=== PATIENT | female | born 1955 | race Caucasian/White ===

== ENCOUNTER → 2024-06-20 10:19 | Outpatient (REF) | payer MEDICARE, OTHER, SELFPAY | LOC: HWWDC 10:19 | PROVIDERS: ATTENDING PHYSICIAN Physician Assistant Medical | DX: Z12.31 Encounter for screening mammogram for malignant neoplasm of breast (principal) | CPT/HCPCS: 77063; 77067 ==

== ENCOUNTER 2024-08-19 14:43 | Emergency (ER) | payer MEDICARE, OTHER, SELFPAY ==
[2024-08-19 14:56] VITALS: BP 166/96
[2024-08-19 15:32] LABS: % Basophils 0.7 % (0-2); % Eosinophils 2.2 % (0-6); % Immature Granulocytes 0.1 % (0-0.5); % Lymphocytes 18.8 % (20.5-51.1); % Monocytes 6.2 % (1.7-9.3); Absolute Basophils 0.1 10^3/uL (0-0.2); Absolute Eosinophils 0.2 10^3/uL (0-0.7); Absolute Lymphocytes 1.4 10^3/uL (1.2-3.4); Absolute Monocytes 0.5 10^3/uL (0.1-0.6); Absolute Neutrophils 5.2 10^3/uL (1.4-6.5); Hemoglobin 14.6 g/dL (12.0-16.0); Mean Corp Hgb Conc. 34.8 g/dL (33.0-37.0); Mean Corpuscular Hgb 31.3 pg (27.0-31.0); Mean Corpuscular Volume 90.1 fL (81.0-99.0); Mean Platelet Volume 9.4 fL (7.4-10.4); Nucleated Red Blood Cells % 0 %; Platelet Count 191 10^3/uL (130-400); Red Blood Cell Count 4.66 10^6/uL (4.20-5.40); Red Cell Dist. Width 12.7 % (11.5-14.5); White Blood Cell Count 7.3 10^3/uL (4.8-10.8)
[2024-08-19 15:43] LABS: ALT (SGPT) 17 U/L (0-35); AST (SGOT) 20 U/L (14-36); Albumin 4.1 g/dl (3.5-5.0); Alkaline Phosphatase 98 U/L (38-126); Blood Urea Nitrogen 20 mg/dl (7-17); Calcium 9.5 mg/dl (8.4-10.2); Carbon Dioxide 30 mmol/L (22-30); Chloride 103 mmol/L (98-107); Glucose 113 mg/dl (70-99); Lipase 142 U/L (23-300); Potassium 4.2 mmol/L (3.5-5.1); Sodium 139 mmol/L (135-145); Total Bilirubin 0.6 mg/dl (0.2-1.3); Total Protein 6.4 g/dl (6.3-8.2); eGFR > 60.00
--- NOTE | 2024-08-19 19:02 | ED.GENMED ---
History of Present Illness
General
Chief Complaint: Abdominal Pain
Source: patient
Exam Limitations: none
Time Seen by Provider: 08/19/24 18:44
History of Present Illness
History of Present Illness:
This is a 69 year old female that comes in with c/o abd cramping. States that this started on Monday and the pain gets to bad that she can't stand up straight. State that it comes and goes. States that in the morning when she gets up she may have
some discomfort but feels OK and then after she has been sitting for a while and goes to get up the pain is worse. States that she has had diarrhea but she has issues with diarrhea normal. Denies any fever, chills, chest pain, SOB, nausea, vomiting,
headache, dizziness, urinary burning.
Past History
Past History
ED Past Medical History: HTN, Hypercholesterolemia and Other (Cellulitis, )
ED Past Surgical History: Cholecystectomy, Gynecological (Tubal) and Other (Cataracts)
Social History
Tobacco: Non-smoker
Alcohol: Occasional
Drug: None
Personal:
Living: with family
Family History
Family History: Other (Noncontributory)
Review of Systems
Review of Systems
All Other Systems: ROS reviewed and negative except as documented in HPI and ROS
Constitutional: Reports no symptoms; Denies fever or chills
EENT: Reports no symptoms
Respiratory: Reports no symptoms; Denies cough or trouble breathing
Cardiac: Reports no symptoms; Denies chest pain
ABD/GI: Reports abdominal pain and diarrhea; Denies nausea or vomiting
: Reports no symptoms; Denies dysuria, frequency or urgency
Musculoskeletal: Reports no symptoms
Skin: Reports no symptoms
Neurological: Reports no symptoms; Denies dizzy or headache
Psychiatric: Reports no symptoms
Phy Exam
General Physical Exam
General Presentation: well appearing and no apparent distress
General age: appears stated age
General Skin: warm and dry
General Habitus: elderly
General Mental: alert
General Hydration: dry mucous membranes
ENT Exam
ENT Exam: TM's normal, pharynx normal and neck supple
Eye Exam
Eye Exam: EOMI
Cardiovascular Exam
Cardiovascular Exam: regular rate/rhythm, no murmur and normal peripheral pulses
Pulmonary Exam
Pulmonary Exam: lungs clear, no respiratory distress, no rales, chest non tender, no crackles, no rhonchi, no wheezing and no cough
Gastrointestinal Exam
Gastrointestinal Exam: normal bowel sounds, soft, no organomegaly, no pulsatile mass, non distended and tender (Mid abd tenderness and right sided tenderness with palpation)
Musculoskeletal Exam
Musculoskeletal Exam: full ROM and no edema
Skin Exam
Skin Exam: normal color, warm/dry, no rash and no petechia
Psychiatric Exam
Psychiatric Exam: normal mood/affect
Course
Orders/Labs/Results
Orders:
Orders
08/19/24 15:09
Complete Blood Count/With Diff Urgent
Comprehensive Metabolic Panel Urgent
Lipase Urgent
08/19/24 18:55
0.9% Sodium Chloride 1000 ml [Nss] 1,000 ml IV BOLUS
08/19/24 18:56
CT Abd/pelvis W Iv Cont Urgent
Comment:
Reason For Exam: Right mid and lower pain.
08/19/24 19:51
Urinalysis Reflex To Culture Urgent
Date Specimen was Collected: 08/19/24
Time Specimen was Collected: 19:50
Urine Microscopic Reflex Cult Urgent
Urine Culture Urgent
CHRISTINE Source: U
Specimen Description:
Date Specimen was Collected: 08/19/24
Time Specimen was Collected: 19:50
Abnormal Lab Results
08/19/24 08/19/24
15:09 19:51
MCH 31.3 H pg
(27.0-31.0)
Lymphocytes % 18.8 L %
(20.5-51.1)
BUN 20 H mg/dl
(7-17)
Glucose 113 H mg/dl
(70-99)
Leukocyte Esterase Rfl Trace A
(Negative)
Urine Bacteria (Reflex) Moderate A
(Negative)
08/19/24 15:09
08/19/24 15:09
Dehydration. Nonfasting blood sugar, Lipase normal at 142, Urine negative for infection.
Vital Signs
Initial and Last Documented VS:
Initial Vital Signs
Temp Pulse Resp BP Pulse Ox
97.8 F 68 18 166/96 95
08/19/24 14:56 08/19/24 14:56 08/19/24 14:56 08/19/24 14:56 08/19/24 14:56
Last Documented Vital Signs
Temp Pulse Resp BP Pulse Ox
97.7 F 69 16 166/86 92
08/19/24 20:38 08/19/24 20:38 08/19/24 20:38 08/19/24 20:38 08/19/24 20:38
MDM/Problems Addressed
Differential Diagnosis Includes:
Colitis, Enteritis
MDM/Problems Addressed:
This is a 69 year old female that comes in with /o abd pain. States that this started on Monday and it comes and goes. States that she is OK in the morning and then it gets worse.
Will check labs and get CT, give IF fluids and get urine
Back to see patient. Explained that her CT scan is negative for any acute process. Explained that this may just be a viral GI syndrome. Patient to follow up with the family doctor. Return with any concerns.
Chronic conditions affecting care:
NA
Acute Exacerbation and/or Progression of Chronic Illness:
NA
*Radiology
Radiology exam reviewed: radiology read reviewed (CT-Limited study demonstrating no evidence of acute pathhology. Evvaluation for bowel pathology is limited by the lack of enteric contrast. If there is clinical suspicion for bowel pathology, this
study could be rpeated with enteric contrast and 4 hour delay. There is cholecystectomy)
*Pulse Oximetry
Patient hypoxic: no
*EKG
Interpreted by ED Provider?: NA
Rate: EKG- N/A
*Cabin Cleaner Interpretation
Rate: Cabin Cleaner- N/A
*Critical Care Note
Total Time (30-74mins, 75-104mins- exclusive of procedures): Not Applicable
ED Attending Note
-
Portions of this chart may have been created with voice recognition software.� Occasional wrong word or��sound alike� substitutions may have occurred due to the inherent limitations of voice recognition software.
Discharge Plan
Departure
Patient Disposition: Home (Routine Discharge)
Date of Disposition: 08/19/24
Time of Disposition: 22:13
Patient with high blood pressure during this ER visit?: Yes
Condition: Good
Covid-19: Not Applicable
Discharge Problem:
Abdominal pain
Instructions: Abdominal Pain, BLOOD PRESSURE
Prescriptions:
No Action
venlafaxine 75 MG capsule,extended release 24hr
75 mg PO DAILY
metoprolol succinate 50 MG tablet extended release 24 hr
50 mg PO DAILY
simvastatin 20 MG tablet
20 mg PO DAILY
lisinopril 10 MG tablet
10 mg PO DAILY
calcium carbonate-vitamin D3 [Calcium 500 + D] 1 EACH tablet
1 ea PO DAILY
pantoprazole 40 MG tablet,delayed release (DR/EC)
40 mg PO DAILY Qty: 30 0RF
Referrals:
Amber Mallory PA-C [Family Provider] - Follow up in 2-3 days
Activity Restrictions/Additional Instructions:
As discussed, your blood work shows a little Dehydration. Otherwise your labs are normal. Your CT is negative for any acute process. This may be a viral Syndrome that will go away on its own. Please increase your water intake to 8-8oz glasses
daily. Follow up with the family doctor for recheck. IF YOU HAVE INCREASED OR CHANGING PAIN, OR YOU HAVE ANY OTHER CONCERNS PLEASE RETURN TO THE EMERGENCY ROOM.
Interventions
Interventions:
*Risk Screen - Suicide Last Done: 08/19/24 14:56
*General Assessment Last Done: 08/19/24 14:56
*Neglect/Abuse Screening Last Done: 08/19/24 14:56
ED- Fall Risk Assessment Last Done: 08/19/24 21:43
ZN-Vtptap-Tqqwijxshx Assessment Last Done: 08/19/24 19:56
Discharge Date and Time
Print Language: LATVIAN
[2024-08-19] MEDS: NSS 1000 IV (19:52)
[2024-08-19 20:00] LABS: Urine Albumin Negative (Neg - Trace); Urine Bilirubin Negative (Negative); Urine Character Clear (Clear); Urine Color Yellow; Urine Glucose Negative (Negative); Urine Ketone Negative (Negative); Urine Leukocyte Trace (Negative); Urine Nitrite Negative (Negative); Urine Occult Blood Negative (Negative); Urine Specific Gravity 1.025 (<1.030); Urine Urobilinogen Negative (Neg - 1+)
[2024-08-19 20:22] LABS: Urine Squamous Cell >30 /LPF (Few)
[2024-08-19 20:23] LABS: Urine Bacteria Moderate (Negative); Urine Red Blood Cell 0-2 /HPF (0-2)
[2024-08-19 20:38] VITALS: BP 166/86
== END 2024-08-19 22:29 | disposition home or self-care (01) ==
LOC: EMR 14:43
PROVIDERS: Clinical Nurse Specialist Family Health; Student in an Organized Health Care Education/Training Program; EMERGENCY PHYSICIAN Emergency Medicine; FAMILY PHYSICIAN Physician Assistant Medical
DX: R10.9 Unspecified abdominal pain (principal); E86.0 Dehydration; E78.00 Pure hypercholesterolemia, unspecified; I10 Essential (primary) hypertension; Z90.49 Acquired absence of other specified parts of digestive tract
CPT/HCPCS: 96360; 99284; 74177; 80053; 81003; 81015; 83690; 85025; 87086; Q9967

== ENCOUNTER 2025-07-25 15:42 | Emergency (ER) | payer MEDICARE, OTHER, SELFPAY ==
[2025-07-25] VITALS (7 sets, daily range): BP systolic 104–162; BP diastolic 59–97; BMI 37.1
[2025-07-25 16:12] LABS: Hematocrit 44.5 % (37.0-47.0); Hemoglobin 15.6 g/dL (12.0-16.0); Mean Corp Hgb Conc. 35.1 g/dL (33.0-37.0); Mean Corpuscular Volume 89.7 fL (81.0-99.0); Nucleated Red Blood Cells % 0 %; Platelet Count 150 10^3/uL (130-400); Red Cell Dist. Width 13.1 % (11.5-14.5)
[2025-07-25 16:33] LABS: ALT (SGPT) 18 U/L (0-35); AST (SGOT) 26 U/L (14-36); Albumin 4.2 g/dl (3.5-5.0); Alkaline Phosphatase 94 U/L (38-126); Blood Urea Nitrogen 33 mg/dl (7-17); Calcium 9.3 mg/dl (8.4-10.2); Carbon Dioxide 23 mmol/L (22-30); Chloride 103 mmol/L (98-107); Estimated Creatinine Clearance 37 ml/min; Glucose 145 mg/dl (70-99); Potassium 3.9 mmol/L (3.5-5.1); Sodium 137 mmol/L (135-145); Total Protein 6.6 g/dl (6.3-8.2); eGFR 37.26
[2025-07-25 16:44] LABS: Troponin I 0.013 ng/ml
--- NOTE | 2025-07-25 17:22 | ED.GENMED ---
History of Present Illness
General
Chief Complaint: Fainting/Passed Out
Time Seen by Provider: 07/25/25 16:10
History of Present Illness
History of Present Illness:
Radha is a 69 year-old female with past medical history of hypertension who presents after a syncopal fall at home today. Struck her head on a chair. Patient reports she has been feeling dizzy for the past 3 days and today was feeling better
but then after lunch she was walking when her noticed she stopped responding subsequently fell to the floor. He reports of loss of consciousness about 1 minute. No postictal state described. Patient now feels back to her normal self.
Reports no pain.
Past History
Past History
ED Past Medical History: HTN, Hypercholesterolemia and Other (Cellulitis, )
ED Past Surgical History: Cholecystectomy, Gynecological (Tubal) and Other (Cataracts)
Social History
Tobacco: Non-smoker
Alcohol: Occasional
Drug: None
Personal:
Living: with family
Employment: Employed
Family History
Family History: Other (Noncontributory)
Phy Exam
General Physical Exam
General Presentation: well appearing and no apparent distress
General Skin: warm and dry
General Habitus: normal
General Mental: alert
General Hydration: appears well hydrated
ENT Exam
ENT Exam: EOMI, pharynx normal, neck supple and normocephalic
Additional ENT: small superficial laceration to lower lip
Eye Exam
Eye Exam: PERRL, cornea clear and conjunctiva normal
Cardiovascular Exam
Cardiovascular Exam: regular rate/rhythm, no edema, no murmur and normal peripheral pulses
Pulmonary Exam
Pulmonary Exam: lungs clear, no respiratory distress, no rales, no crackles, no rhonchi, no stridor, no wheezing and no cough
Gastrointestinal Exam
Gastrointestinal Exam: normal bowel sounds, non tender, soft, no organomegaly, no pulsatile mass and non distended
Neurological Exam
Neurological Exam: alert, oriented x3, no motor deficits and speech normal
Musculoskeletal Exam
Musculoskeletal Exam: full ROM and no edema
Skin Exam
Skin Exam: normal color, warm/dry, no rash and no petechia
Psychiatric Exam
Psychiatric Exam: normal mood/affect
Course
Orders/Labs/Results
Orders:
Orders
07/25/25 15:52
Electrocardiogram (*1) Urgent
Reason for Study: Syncope
EKG- Treatment ONCE
07/25/25 16:01
Complete Blood Count/With Diff Urgent
Comprehensive Metabolic Panel Urgent
Troponin I Urgent
07/25/25 16:25
CT Head W/o Iv Contrast Urgent
Comment:
Reason For Exam: syncopal fall
07/25/25 19:21
Magnesium Oxide 400 mg PO NOW STA
07/25/25 19:43
Troponin I Urgent
Abnormal Lab Results
07/25/25
16:01
MCH 31.5 H pg
(27.0-31.0)
Absolute Neuts (auto) 8.2 H 10^3/uL
(1.4-6.5)
Absolute Lymphs (auto) 0.9 L 10^3/uL
(1.2-3.4)
Absolute Monos (auto) 0.8 H 10^3/uL
(0.1-0.6)
Neutrophils % 82.0 H %
(42.2-75.2)
Lymphocytes % 8.6 L %
(20.5-51.1)
BUN 33 H mg/dl
(7-17)
Creatinine 1.5 H mg/dL
(0.6-1.0)
Glucose 145 H mg/dl
(70-99)
07/25/25 16:01
07/25/25 16:25
Vital Signs
Initial and Last Documented VS:
Initial Vital Signs
Temp Pulse Resp BP Pulse Ox
36.5 C 69 16 104/69 98
07/25/25 15:47 07/25/25 15:47 07/25/25 15:47 07/25/25 15:47 07/25/25 15:47
Last Documented Vital Signs
Temp Pulse Resp BP Pulse Ox
36.5 C 86 21 162/85 97
07/25/25 15:47 07/25/25 21:00 07/25/25 21:00 07/25/25 21:00 07/25/25 20:02
MDM/Problems Addressed
Differential Diagnosis Includes:
CBC unremarkable. Creatinine mildly elevated at 1.5 however patient does have prior creatinine elevations and reports drinking several alcoholic beverages and not much water today. Encouraged oral hydration. Troponin 0.013.
Head CT obtained and negative for any acute intracranial hemorrhage.
EKG normal sinus rhythm with QTc prolongation however on review of prior EKGs this is chronic for patient and improved from last EKG. Will give p.o. mag prior to discharge.
Repeat troponin remains 0.013
Patient has remained hemodynamically stable in the ER. Blood pressure has improved from arrival of systolic blood pressure 105. BP now 140 systolic.
Patient remains without complaints and would like to go home. I discussed likely vasovagal syncope with patient as well as her EKG findings. She will follow-up with cardiology as she has not seen cardiology in over 3 years. Does not recall issues
or prior. All questions answered.
*Pulse Oximetry
SaO2: 98
Oxygen Mode of Delivery: Room air
Patient hypoxic: no
*Critical Care Note
Total Time (30-74mins, 75-104mins- exclusive of procedures): Not Applicable
ED Attending Note
-
Portions of this chart may have been created with voice recognition software.� Occasional wrong word or��sound alike� substitutions may have occurred due to the inherent limitations of voice recognition software.
Discharge Plan
Departure
Patient Disposition: Home (Routine Discharge)
Date of Disposition: 07/25/25
Time of Disposition: 20:50
Patient with high blood pressure during this ER visit?: Yes
Discharge Problem:
Syncope, Fall
Instructions: Fainting in adults - ED (DC), Chest Pain DCA Follow Up
Prescriptions:
No Action
venlafaxine 75 MG capsule,extended release 24hr
75 mg PO DAILY
metoprolol succinate 50 MG tablet extended release 24 hr
50 mg PO DAILY
simvastatin 20 MG tablet
20 mg PO DAILY
lisinopril 10 MG tablet
10 mg PO DAILY
calcium carbonate-vitamin D3 [Calcium 500 + D] 1 EACH tablet
1 ea PO DAILY
pantoprazole 40 MG tablet,delayed release (DR/EC)
40 mg PO DAILY Qty: 30 0RF
Referrals:
Amber Mallory PA-C [Specified Professional Personl, Internal Medicine]
Activity Restrictions/Additional Instructions:
Lab work and EKG were unremarkable here in the ER. Please follow-up with cardiology. Return to the ER for further episodes of passing out, chest pain, dizziness, shortness of breath, or other concerning symptoms.
Interventions
Interventions:
*Risk Screen - Suicide Last Done: 07/25/25 15:50
*General Assessment Last Done: 07/25/25 15:50
*Neglect/Abuse Screening Last Done: 07/25/25 15:50
*ED COVID-19 Vaccine History Last Done: 07/25/25 15:50
*ED Influenza Vaccine History Last Done: 07/25/25 15:50
[facility] Fall Risk Assessment Tool Last Done: 07/25/25 15:52
*Nursing Disposition Last Done: 07/25/25 21:21
ED- Cardiac Assessment Last Done: 07/25/25 15:50
ED- Neurological Assessment Last Done: 07/25/25 15:50
Discharge Date and Time
Discharge Date/Time: 07/25/25 21:24
Print Language: ESTONIAN
[2025-07-25] MEDS: MAGNESIUM OXIDE 400 MG PO (19:39)
[2025-07-25 20:37] LABS: Troponin I 0.013 ng/ml
== END 2025-07-25 21:24 | disposition home or self-care (01) ==
LOC: EMR 15:42
PROVIDERS: Surgery Trauma Surgery; EMERGENCY PHYSICIAN Student in an Organized Health Care Education/Training Program; FAMILY PHYSICIAN Family Medicine
DX: R55 Syncope and collapse (principal); W19.XXXA Unspecified fall, initial encounter; I10 Essential (primary) hypertension; E78.00 Pure hypercholesterolemia, unspecified; Z90.49 Acquired absence of other specified parts of digestive tract
CPT/HCPCS: 99284; 70450; 80053; 84484; 85025; 93005

== ENCOUNTER → 2025-08-08 07:35 | Outpatient (REF) | payer MEDICARE, OTHER, SELFPAY | LOC: HWRCS 07:35 | PROVIDERS: ATTENDING PHYSICIAN Internal Medicine Cardiovascular Disease; FAMILY PHYSICIAN Physician Assistant Medical | DX: R55 Syncope and collapse (principal) | CPT/HCPCS: 93306 ==